=== PATIENT | male | born 1950 | race Native Hawaiian/Other Pacific Islander ===

== ENCOUNTER 2020-09-05 09:34 | Outpatient (CLI) | payer BC | END 2020-09-05 23:18 | disposition home or self-care (01) | LOC: LABW 09:34 | PROVIDERS: ATTEND Internal Medicine | DX: R71.8 Other abnormality of red blood cells (principal); E29.1 Testicular hypofunction | CPT/HCPCS: 36415; 85014; 85018 ==

== ENCOUNTER 2022-04-27 09:35 | Outpatient (CLI) | payer BC ==
[2022-04-27 10:04] LABS: PLATELET COUNT 224 K/uL (142-355)
== END 2022-04-27 19:06 | disposition home or self-care (01) ==
LOC: LABW 09:35
PROVIDERS: ATTEND Internal Medicine
DX: D75.1 Secondary polycythemia (principal)
CPT/HCPCS: 36415; 85027

== ENCOUNTER 2022-06-08 13:27 | Outpatient (CLI) | payer BC ==
[2022-06-08 13:39] LABS: PLATELET COUNT 217 K/uL (142-355)
== END 2022-06-08 19:09 | disposition home or self-care (01) ==
LOC: LABW 13:27
PROVIDERS: ATTEND Internal Medicine
DX: D75.1 Secondary polycythemia (principal)
CPT/HCPCS: 36415; 85027